=== PATIENT | male | born 1970 | race Caucasian/White ===

== ENCOUNTER 2016-08-25 08:51 | Emergency (ER) | payer MEDICAID ==
[~2016-08-25] VITALS: Ht 185.4 cm; Wt 114.2 kg
[~2016-08-25 08:51] MED LIST: CEPH500C3 PO; IBUP800T23 PO; METH40TA9 PO
[2016-08-25 08:53] VITALS: BP 187/111; PULSE 78; RESP 18; TEMP 98; O2SAT 99
[2016-08-25] MEDS ORDERED: LISI10TA3 PO (09:10)
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
== END 2016-08-25 09:35 | disposition home or self-care (01) ==
LOC: PHED 08:51
DX: I83.013 Varicose veins of right lower extremity with ulcer of ankle (principal); L97.319 Non-pressure chronic ulcer of right ankle with unspecified severity
CPT/HCPCS: 99282

== ENCOUNTER 2016-11-09 12:38 | Emergency (ER) | payer OTHER, MEDICAID ==
[~2016-11-09] VITALS: Ht 182.9 cm; Wt 112.6 kg
[~2016-11-09 12:38] MED LIST changes: -CEPH500C3 PO; -IBUP800T23 PO; +LISI10TA3 PO; -METH40TA9 PO
[2016-11-09 12:41] VITALS: BP 187/108; PULSE 67; RESP 18; TEMP 98.3; O2SAT 98
[2016-11-09] MEDS ORDERED: METH10TA PO (12:53)
[2016-11-09] MEDS ORDERED: LISINOPRIL 10 MG TAB PO ONE (13:15)
[2016-11-09] MEDS ORDERED: LISI10TA3 PO (13:16)
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
[2016-11-09 13:24] LABS: AUTOMATED NEUTROPHIL # 6.2 TH/MM3 (1.8-7.7); BASOPHIL # 0.1 TH/MM3 (0-0.2); BASOPHIL % 0.6 % (0.0-2.0); EOSINOPHIL # 0.1 TH/MM3 (0-0.4); EOSINOPHIL % 0.7 % (0.0-4.0); HEMATOCRIT 42.3 % (39.0-51.0); HEMO FLAGS DIFF FINAL; LYMPH % 23.2 % (9.0-44.0); MEAN CELL VOLUME 86.1 FL (80.0-100.0); MEAN CORPUSCULAR HGB CONC 33.7 % (32.0-36.0); MONO % 4.9 % (0.0-8.0); NEUT % 70.6 % (16.0-70.0); PLATELET COUNT 278 TH/MM3 (150-450); RED BLOOD COUNT 4.92 MIL/MM3 (4.50-5.90); RED CELL DISTRIBUTION WIDTH 12.8 % (11.6-17.2); WHITE BLOOD COUNT 8.8 TH/MM3 (4.0-11.0)
[2016-11-09 13:27] VITALS: BP 191/90; PULSE 71; RESP 20; O2SAT 95
[2016-11-09 13:38] LABS: BICARBONATE 31.8 MEQ/L (21.0-32.0)
[2016-11-09 14:20] VITALS: BP 173/86
== END 2016-11-09 14:31 | disposition home or self-care (01) ==
LOC: PHED 12:38
DX: I10 Essential (primary) hypertension (principal); G89.29 Other chronic pain; M54.9 Dorsalgia, unspecified; M79.89 Other specified soft tissue disorders; R60.9 Edema, unspecified
CPT/HCPCS: 80048; 83880; 85025; 99283